=== PATIENT | female | born 1995 | race Caucasian/White ===

== ENCOUNTER 2017-06-10 11:24 | Emergency (ER) | payer OTHER, SELFPAY | END 2017-06-10 14:40 | disposition short-term general hospital (02) | PROVIDERS: Emergency Provider Emergency Medicine; Family Provider Physician Assistant; Visit Provider Emergency Medicine | DX: S20.219A Contusion of unspecified front wall of thorax, initial encounter (principal); S00.93XA Contusion of unspecified part of head, initial encounter; S14.109A Unspecified injury at unspecified level of cervical spinal cord, initial encounter; V47.5XXA Car driver injured in collision with fixed or stationary object in traffic accident, initial encounter; Y92.414 Local residential or business street as the place of occurrence of the external cause; F17.210 Nicotine dependence, cigarettes, uncomplicated | CPT/HCPCS: 70450; 71020; 72125; 81001; 81025; 99284 ==

== ENCOUNTER → 2017-11-11 13:32 | Outpatient (CLI) | payer OTHER, SELFPAY ==
[2017-11-11 15:31] LABS: Basophils # 0.1 K/mm3 (0-0.2); Basophils % 0.9 % (0.1-2.0); Eosinophils # 0.2 K/mm3 (0.0-0.4); Eosinophils % 2.4 % (0.1-12.0); Hematocrit 46.6 % (37.0-47.0); Hemoglobin 14.6 g/dL (12.2-16.2); Lymphocytes # 2.8 K/mm3 (0.7-4.5); Lymphocytes % 30.2 K/mm3 (10-50); Mean Corpuscular HGB Conc 31.4 g/dL (31.8-35.4); Mean Corpuscular Hemoglobin 28.5 pg (27.0-31.2); Mean Corpuscular Volume 90.6 fl (81-99); Mean Platelet Volume 7.9 fl (7.4-10.4); Monocytes # 0.3 K/mm3 (0.1-1.0); Monocytes % 3.7 % (1.7-9.3); Neutrophils # 5.7 K/mm3 (1.8-7.8); Neutrophils % 62.8 % (37.0-80.0); Platelet Count 330 K/mm3 (142-424); Red Blood Count 5.14 M/mm3 (4.20-5.40); Red Cell Distribution Width 12.8 % (11.5-17.5); White Blood Count 9.1 K/mm3 (4.8-10.8)
[2017-11-11 15:38] LABS: Hemoglobin A1C 5.5 % (0.0-7.0)
[2017-11-11 18:08] LABS: HCG Qualitative, Serum Negative (Negative)
[2017-11-11 18:59] LABS: Alanine Aminotransferase 23 U/L (12-78); Albumin Level 4.1 gm/dL (3.4-5.0); Albumin/Globulin Ratio 1.2 (1.1-1.8); Alkaline Phosphatase 60 U/L (46-116); Aspartate Amino Transferase 14 U/L (15-37); Bilirubin,Total 0.5 mg/dL (0.2-1.0); Blood Urea Nitrogen 9 mg/dL (7-18); Calcium 9.4 mg/dL (8.5-10.1); Carbon Dioxide 26 mmol/L (21.0-32.0); Cholesterol 144 mg/dL (140-200); Creatinine,Serum 0.66 mg/dL (0.55-1.02); Estimated Glomerular Filt Rate 112 ml/min (>60); GFR (African American) 136 ML/MIN (>60); Globulin 3.3 gm/dl (1.3-3.2); Glucose 86 mg/dL (74-106); T4 (Thyroxine) 9.9 ug/dl (4.7-13.3); Thyroid Stimulating Hormone 1.25 uIU/ml (0.358-3.740); Total Protein,Serum 7.4 gm/dL (6.4-8.2); Triglycerides 71 mg/dL (30-200); VLDL Cholesterol 14 mg/dL (0-40)
[2017-11-11 19:31] LABS: Anion Gap 13.2 mEq/L (5-15); Chloride 104 mmol/L (98-107); Chol/HDL Ratio 3.9 (1-3.5); HDL Cholesterol 37 mg/dL (29-89); LDL Cholesterol 93 mg/dL (0-130); Potassium 4.2 mmoL/L (3.5-5.1); Sodium 139 mmol/L (136-145)
[2017-11-13 20:19] LABS: Vitamin B12 294 pg/mL (232-1245)
[2017-11-15 15:55] LABS: Vitamin D 25 Hydroxy 31.4 ng/mL (30.0-100.0)
== END ==
PROVIDERS: Visit Provider Nurse Practitioner Family
DX: R53.83 Other fatigue (principal); E03.9 Hypothyroidism, unspecified; R73.09 Other abnormal glucose
CPT/HCPCS: 36415; 80053; 80061; 82607; 82652; 83036; 84436; 84443; 84703; 85025; 87086; 87088; 87186

== ENCOUNTER → 2018-04-11 16:33 | Outpatient (CLI) | payer OTHER, SELFPAY ==
[2018-04-11 17:13] LABS: Basophils # 0.1 K/mm3 (0-0.2); Basophils % 0.4 % (0.1-2.0); Eosinophils # 0.2 K/mm3 (0.0-0.4); Eosinophils % 1.9 % (0.1-12.0); Hematocrit 41.5 % (37.0-47.0); Hemoglobin 13.7 g/dL (12.2-16.2); Lymphocytes # 2.4 K/mm3 (0.7-4.5); Lymphocytes % 22.5 K/mm3 (10-50); Mean Corpuscular HGB Conc 32.9 g/dL (31.8-35.4); Mean Corpuscular Hemoglobin 29.9 pg (27.0-31.2); Mean Platelet Volume 6.8 fl (7.4-10.4); Monocytes # 0.4 K/mm3 (0.1-1.0); Monocytes % 3.6 % (1.7-9.3); Neutrophils # 7.5 K/mm3 (1.8-7.8); Neutrophils % 71.6 % (37.0-80.0); Platelet Count 358 K/mm3 (142-424); Red Blood Count 4.56 M/mm3 (4.20-5.40); Red Cell Distribution Width 12.7 % (11.5-17.5); White Blood Count 10.5 K/mm3 (4.8-10.8)
[2018-04-14 06:42] LABS: HIV Screen 4th Generation wRfx Non Reactive (Non Reactive); Rapid Plasma Reagin Ab Titer Non Reactive (NonRea<1:1); Rubella Antibodies, IgG 3.72 index (Immune >0.99)
[2018-04-14 06:43] LABS: Hepatitis B Surface Antigen Negative (Negative); Hepatitis C Antibody <0.1 s/co ratio (0.0-0.9)
== END ==
PROVIDERS: Family Provider Physician Assistant; PCP Physician Assistant; Visit Provider Nurse Practitioner Obstetrics & Gynecology
DX: Z34.90 Encounter for supervision of normal pregnancy, unspecified, unspecified trimester (principal); Z3A.08 8 weeks gestation of pregnancy
CPT/HCPCS: 36415; 85025; 86592; 86703; 86762; 86850; 87340; 87380; G0432

== ENCOUNTER → 2018-04-20 14:13 | Outpatient (CLI) | payer OTHER, SELFPAY ==
--- NOTE | 2018-04-20 14:15 | US_ITS ---
US OB transvaginal HISTORY: ITS.REASON: US OB Dates ORDERING PHYSICIAN: Fidel Tolbert MD PATIENT AGE: 22 years COMPARISON: None FINDINGS: An intrauterine gestational sac is present with a pole with a crown-rump length of 1.73cm correlating to gestational age of 8 weeks 2 days. heart tones are present with an FHR of 157 bpm's. Yolk sac is noted. Adnexa: Unremarkable. IMPRESSION: Live intrauterine gestation at 8 weeks 2 days as described above. Estimated due date by Ultrasound is 11/28/2018
== END ==
PROVIDERS: PCP Physician Assistant; Visit Provider Nurse Practitioner Obstetrics & Gynecology
DX: O26.841 Uterine size-date discrepancy, first trimester (principal)
CPT/HCPCS: 76817

== ENCOUNTER 2018-07-24 02:47 | Outpatient (CLI) | payer OTHER, SELFPAY ==
[2018-07-24 02:59] VITALS: BMI 25.2
[2018-07-24 03:05] LABS: Microscopic, Urine URINE MICROSCOPIC (MICROSCOPIC)
[2018-07-24 03:07] LABS: Appearance,Urine SL CLOUDY (Clear); Bilirubin,Urine Negative (Negative); Blood, Urine Negative (Negative); Color,Urine YELLOW (Yellow); Glucose,Urine (UA) Negative (Negative); Ketones,Urine Negative (Negative); Leukocyte Esterase,Urine Negative (Negative); Nitrate,Urine Negative (Negative); PH,Urine 6.5 (5.0-8.5); Protein,Urine Negative (Negative); Urobilinogen,Urine 0.2 EU/dl (0.2)
[2018-07-24 03:14] LABS: Amorphous Sediment,Urine 2+ /lpf; Mucus,Urine Trace /lpf
[2018-07-24 03:46] VITALS: BP 119/70; PULSE 90; RESP 18; TEMP 37.1; O2SAT 99; BMI 25.2
== END 2018-07-24 04:10 | disposition home or self-care (01) ==
LOC: OBOUT 02:50 → OB 02:51
PROVIDERS: Visit Provider Nurse Practitioner Obstetrics & Gynecology
DX: O99.89 Other specified diseases and conditions complicating pregnancy, childbirth and the puerperium (principal); Z3A.22 22 weeks gestation of pregnancy
CPT/HCPCS: 59025; 81001

== ENCOUNTER 2018-08-13 23:09 | Outpatient (CLI) | payer SELFPAY ==
[2018-08-13 23:49] VITALS: BMI 25.5
[2018-08-13 23:53] VITALS: BMI 25.5
[2018-08-13 23:56] VITALS: BP 119/65; PULSE 85; RESP 18; TEMP 36.7; O2SAT 96
[2018-08-13 23:58] LABS: Microscopic, Urine URINE MICROSCOPIC (MICROSCOPIC)
[2018-08-13 23:59] LABS: Appearance,Urine CLOUDY (Clear); Blood, Urine Negative (Negative); Color,Urine YELLOW (Yellow); Glucose,Urine (UA) Negative (Negative); Ketones,Urine TRACE (Negative); Leukocyte Esterase,Urine 1+ (Negative); Nitrate,Urine Negative (Negative); PH,Urine 6.5 (5.0-8.5); Protein,Urine Negative (Negative); Specific Gravity, Urine 1.025 (1.005-1.030)
[2018-08-14 00:03] LABS: Bilirubin,Urine Negative (Negative)
[2018-08-14 00:04] LABS: Amorphous Sediment,Urine 4+ /lpf; Squamous Epithelial Cell,Urine 20-50 #/hpf (0-5)
[2018-08-14 00:08] LABS: Amphetamine/Metha Screen,Urine Negative ng/mL (<1000); Barbiturates Screen,Urine Negative ng/mL (<200); Benzodiazepines Screen,Urine Negative ng/mL (<200); Cannabinoid Screen,Urine Negative ng/mL (<50); Cocaine Screen,Urine Negative ng/mL (<300); Methadone Screen,Urine Negative ng/mL (<300); Opiate Screen,Urine Negative ng/mL (<300); Phencyclidine Screen,Urine Negative ng/mL (<25)
== END 2018-08-14 00:40 | disposition home or self-care (01) ==
LOC: OBOUT 23:12 → OB 23:13
PROVIDERS: Visit Provider Obstetrics & Gynecology
DX: O36.8120 Decreased fetal movements, second trimester, not applicable or unspecified (principal); Z3A.25 25 weeks gestation of pregnancy
CPT/HCPCS: 59025; 80305; 81001; 87086

== ENCOUNTER → 2021-09-18 12:09 | Outpatient (CLI) | payer SELFPAY ==
--- NOTE | 2021-09-18 12:17 | US_ITS ---
FINAL REPORT CLINICAL HISTORY: ABD PAIN; nausea/ vomiting for 3 weeks FINDINGS: Sonographic images of the right upper quadrant were obtained. The pancreas is partially obscured.The liver has an unremarkable appearance. There are multiple gallstones in the gallbladder. There is no evidence of biliary ductal dilatation.The common duct measures 4mm. Limited images of the right kidney are unremarkable. IMPRESSION: Cholelithiasis. Reviewed, Interpreted and Dictated by Alessio Bruce III, MD Transcribed by Jace Hitchcock Authenticated by Alessio Bruce III, MD on 09/18/2021 01:39:42 PM [facility]
== END ==
PROVIDERS: PCP Nurse Practitioner; Visit Provider Nurse Practitioner
DX: R10.10 Upper abdominal pain, unspecified (principal)
CPT/HCPCS: 76705

== ENCOUNTER → 2021-09-29 10:47 | Outpatient (CLI) | payer MEDICAID, SELFPAY ==
[2021-09-29 10:51] LABS: Adenovirus F 40/41, stool Not Detected (NotDetected); Campylobacter Not Detected (NotDetected); Clostridium Difficile A/B, PCR Not Detected (NotDetected); Cryptosporidium Not Detected (NotDetected); Cyclospora Cayetanesis Not Detected (NotDetected); Entamoeba histolytica Not Detected (NotDetected); Enteroaggregative E coli Not Detected (NotDetected); Enteropathogenic E coli Not Detected (NotDetected); Enterotoxigenic E coli Not Detected (NotDetected); Norovirus Not Detected (NotDetected); Plesimonas Shigalloides, PCR Not Detected (NotDetected); Rotavirus A Not Detected (NotDetected); Salmonella, PCR Not Detected (NotDetected); Sapovirus Not Detected (NotDetected); Shiga-like toxin E coli Not Detected (NotDetected); Shigella Enterovasive E coli Not Detected (NotDetected); Vibrio Cholerae Not Detected (NotDetected); Vibrio, PCR Not Detected (NotDetected); Yersinia Entercolitica, PCR Not Detected (NotDetected)
[2021-09-29 17:34] LABS: Astrovirus Detected (NotDetected)
[2021-09-29 17:39] LABS: Giardia lamblia Detected (NotDetected)
== END ==
PROVIDERS: Visit Provider Surgery
DX: R19.7 Diarrhea, unspecified (principal); A08.32 Astrovirus enteritis; A07.1 Giardiasis [lambliasis]
CPT/HCPCS: 87507

== ENCOUNTER → 2021-10-14 08:27 | Outpatient (CLI) | payer MEDICAID, SELFPAY ==
--- NOTE | 2021-10-14 08:27 | CT_ITS ---
FINAL REPORT TECHNIQUE: After the administration of oral and intravenous contrast, axial images were obtained through the abdomen and pelvis by computed tomography. The study was performed with techniques to keep radiation dose as low as reasonably achievable, (ALARA). Individual dose reduction techniques using automated exposure control or adjustment of mA and/or kV according to the patient's size were employed. CLINICAL HISTORY: RUQ pain, nausea, diarrhea COMPARISON: March 11, 2016 FINDINGS: Abdomen: The lung bases are clear. The liver parenchyma is homogeneous. The gallbladder is present. There are some stones or sludge within the lumen of the gallbladder. The spleen, pancreas, adrenals and kidneys appear unremarkable. The aorta is normal in caliber. There is no free fluid or adenopathy. There are multiple enlarged mesenteric lymph nodes present. Individual lymph nodes measure up to 2.0 cm in greatest diameter. Lymph nodes are seen throughout the root of the mesentery. Pelvis: The appendix measures at the upper limits in size but it is air-filled and there is no surrounding inflammation. There is a cyst or follicle in the left ovary measuring 1.8 cm . The urinary bladder is unremarkable. There is no free fluid or adenopathy. IMPRESSION: New extensive mesenteric adenopathy favoring inflammatory but may be related to mesenteric adenitis. Other etiology such as lymphoma could be a consideration. Recommend follow-up CT scan to assess for interval change. Reviewed, Interpreted and Dictated by Liam Black MD Transcribed by Evelyn Chatterjee Authenticated by Liam Black MD on 10/14/2021 11:36:59 AM [facility]
== END ==
PROVIDERS: PCP Nurse Practitioner; Visit Provider Surgery
DX: R10.11 Right upper quadrant pain (principal); R11.0 Nausea; R19.7 Diarrhea, unspecified
CPT/HCPCS: 74177; Q9967

== ENCOUNTER 2021-10-15 23:00 | Emergency (ER) | payer MEDICAID, SELFPAY ==
[2021-10-15 23:23] VITALS: BP 147/114; PULSE 85; RESP 18; TEMP 36.8; O2SAT 99; BMI 27.8
[2021-10-15 23:25] VITALS: BMI 29.5
[2021-10-15 23:39] LABS: Basophils # 0.4 K/mm3 (0-0.2); Basophils % 3.6 % (0.1-2.0); Eosinophils # 0.3 K/mm3 (0.0-0.4); Eosinophils % 3.1 % (0.1-12.0); Hematocrit 44.2 % (37.0-47.0); Hemoglobin 14.7 g/dL (12.2-16.2); Lymphocytes # 4.2 K/mm3 (0.7-4.5); Mean Corpuscular HGB Conc 33.2 g/dL (31.8-35.4); Mean Corpuscular Hemoglobin 29.5 pg (27.0-31.2); Mean Corpuscular Volume 88.9 fl (81-99); Monocytes # 0.5 K/mm3 (0.1-1.0); Monocytes % 4.1 % (1.7-9.3); Neutrophils # 5.5 K/mm3 (1.8-7.8); Neutrophils % 50.1 % (37.0-80.0); Platelet Count 323 K/mm3 (142-424); Red Blood Count 4.97 M/mm3 (4.20-5.40); White Blood Count 10.9 K/mm3 (4.8-10.8)
[2021-10-15 23:48] LABS: Microscopic, Urine URINE MICROSCOPIC (MICROSCOPIC)
[2021-10-15 23:49] LABS: Alanine Aminotransferase 35 U/L (12-78); Albumin Level 4.6 g/dl (3.5-5.0); Albumin/Globulin Ratio 1.6 (1.1-1.8); Alkaline Phosphatase 95 U/L (38-126); Anion Gap 12.6 mEq/L (5-15); Aspartate Amino Transferase 32 U/L (14-36); Bilirubin,Total 0.5 mg/dl (0.2-1.3); Blood Urea Nitrogen 7 mg/dl (7-17); Calcium 9.9 mg/dl (8.4-10.2); Carbon Dioxide 25 mmol/L (22.0-30.0); Chloride 106 mmol/L (98-107); Creatinine Clearance Estimated 305 mL/min (50-200); Estimated Glomerular Filt Rate 193 ml/min (>60); GFR (African American) 233 ML/MIN (>60); Globulin 2.9 g/dL (1.3-3.2); Glucose 109 mg/dl (74-100); Potassium 3.6 mmoL/L (3.5-5.1); Sodium 140 mmol/L (136-145); Total Protein,Serum 7.5 g/dl (6.3-8.2)
[2021-10-15 23:49] LABS: Appearance,Urine CLEAR (Clear); Bilirubin,Urine Negative (Negative); Blood, Urine Negative (Negative); Color,Urine YELLOW (Yellow); Glucose,Urine (UA) Negative (Negative); Ketones,Urine Negative (Negative); Leukocyte Esterase,Urine Negative (Negative); Nitrate,Urine Negative (Negative); Protein,Urine Negative (Negative); Urobilinogen,Urine 0.2 EU/dl (0.2)
[2021-10-15 23:54] LABS: C-Reactive Protein 4.6 mg/L (0-4)
[2021-10-16 00:08] LABS: Procalcitonin 0.037 ng/mL (0.0-2.0)
--- NOTE | 2021-10-16 00:11 | HMH.EDNVD ---
ED Disposition Clinical Impression: Cholelithiasis Qualifiers: Cholelithiasis location: gallbladder Cholecystitis presence: without cholecystitis Biliary obstruction: without biliary obstruction Qualified Code(s): K80.20 - Calculus of gallbladder without cholecystitis without obstruction Disposition: Home, Self-Care Condition on Discharge: Good Instructions: DI for Gallstones Additional Instructions: call dr barragan for follow up Referrals: Kelton Jha [Primary Care Provider] - Alessio Barragan MD [Staff Physician] - - Critical Care Critical Care Time: No Attestation: On 10/15/21, the high probability of a clinically significant, sudden or life threatening deterioration of the following system(s) required my full and direct attention, intervention and personal management. The time I documented below is in addition to time spent performing reported procedures but includes the following listed in this critical care notation. Medical Decision Making - Medical Records Medical records reviewed: Yes: I reviewed the patient's medical records. - [place] Inquiry Pt receiving controlled substance: No Vital Signs: 10/15/21 23:23 Temperature 98.2 F Temperature Source Oral Pulse Rate [Apical] 85 Respiratory Rate 18 Blood Pressure [Right Arm] 147/114 H Blood Pressure Mean [Right Arm] 125 Blood Pressure Source [Right Arm] Automatic Cuff Blood Pressure Position [Right Arm] Sitting 02 Sat by Pulse Oximetry 99 Oxygen Delivery Method Room Air - Lab Data Lab results reviewed: Yes: I reviewed the patient's lab results. Lab Results 10/15/21 23:15: WBC 10.9 H, RBC 4.97, Hgb 14.7, Hct 44.2, MCV 88.9, MCH 29.5, MCHC 33.2, RDW 13.0, Plt Count 323, MPV 8.0, Neut % (Auto) 50.1, Lymph % (Auto) 39.0, Slope % (Auto) 4.1, Eos % (Auto) 3.1, Baso % (Auto) 3.6 H, Neut # (Auto) 5.5, Lymph # (Auto) 4.2, Slope # (Auto) 0.5, Eos # (Auto) 0.3, Baso # (Auto) 0.4 H 10/15/21 23:15: Sodium 140, Potassium 3.6, Chloride 106, Carbon Dioxide 25, Anion Gap 12.6, BUN 7, Creatinine 0.40 L, Estimated Creat Clear 305 H, Estimated GFR 193, Est GFR ( Amer) 233, Glucose 109 H, Calcium 9.9, Total Bilirubin 0.5, AST 32, ALT 35, Alkaline Phosphatase 95, C-Reactive Protein 4.6 H, Total Protein 7.5, Albumin 4.6, Globulin 2.9, Albumin/Globulin Ratio 1.6, Procalcitonin 0.037 10/15/21 23:43: Urine Color Yellow, Urine Appearance Clear, Urine pH 7.0, Ur Specific [place] 1.020, Urine Protein Negative, Urine Glucose (UA) Negative, Urine Ketones Negative, Urine Blood Negative, Urine Nitrate Negative, Urine Bilirubin Negative, Urine Urobilinogen 0.2, Ur Leukocyte Esterase Negative, Urine RBC None, Urine WBC Occasional, Ur Squamous Epith Cells Occasional, Urine Bacteria None 10/16/21 00:00: Amylase 62, Lipase 81 Result diagrams: 10/15/21 23:15 10/15/21 23:15 Orders (Tests/Meds): ED MEDICATIONS Generic Name Dose Route Start Last Admin Trade Name Freq PRN Reason Stop Dose Admin Lactated Ringer's 1,000 mls @ 999 mls/hr 10/15/21 23:30 10/15/21 23:39 Lactated Ringer's 1000 Ml Bag IV 10/16/21 00:30 999 mls/hr .Q1H1M ROLDAN Administration Sodium Chloride 8 ml 10/15/21 23:25 Sodium Chloride 0.9% 10ml Vial IV 11/14/21 23:24 NEEDED PRN dilute pepcid Discontinued Medications Generic Name Dose Route Start Last Admin Trade Name Freq PRN Reason Stop Dose Admin Acetaminophen/Codeine Phosphate 1 shadi 10/16/21 00:32 10/16/21 00:36 Acetaminophen 300mg W/Codeine 30mg Take Home Pack (6) PO 10/16/21 00:33 1 shadi ONCE ONE Administration Famotidine 20 mg 10/15/21 23:25 10/15/21 23:40 Famotidine 20mg/2ml Vial IV 10/15/21 23:26 20 mg ONCE ONE Administration Ketorolac Tromethamine 30 mg 10/15/21 23:25 10/15/21 23:39 Ketorolac 30mg/Ml Vial IV 10/15/21 23:26 30 mg ONCE ONE Administration Metoclopramide HCl 10 mg 10/15/21 23:25 10/15/21 23:40 Metoclopramide Hcl 10mg/2ml Vial IVP 10/15/21 23:26 10 mg ONCE ONE
[2021-10-16 00:17] LABS: Squamous Epithelial Cell,Urine Occasional #/hpf (0-5); WBC,Urine Occasional #/hpf (0-3)
[2021-10-16 00:20] LABS: Amylase 62 U/L (30-110); Lipase 81 U/L (23-300)
--- NOTE | 2021-10-16 00:30 | PC.NURSE ---
Dr. Trivedi on phone with Dr. Barragan
[2021-10-16 00:58] LABS: Erythrocyte Sedimentation Rate 10 mm/hr (0-20)
[2021-10-16 01:04] VITALS: BP 140/90; PULSE 80; RESP 18; TEMP 36.8; O2SAT 99
== END 2021-10-16 01:09 | disposition home or self-care (01) ==
PROVIDERS: Emergency Provider Emergency Medicine; PCP Pediatrics
DX: K80.20 Calculus of gallbladder without cholecystitis without obstruction (principal); M54.9 Dorsalgia, unspecified; I11.0 Hypertensive heart disease with heart failure; E03.9 Hypothyroidism, unspecified; J45.909 Unspecified asthma, uncomplicated; F17.210 Nicotine dependence, cigarettes, uncomplicated; Z79.899 Other long term (current) drug therapy; Z88.6 Allergy status to analgesic agent; Z82.49 Family history of ischemic heart disease and other diseases of the circulatory system; Z83.438 Family history of other disorder of lipoprotein metabolism and other lipidemia; Z82.5 Family history of asthma and other chronic lower respiratory diseases; Z83.3 Family history of diabetes mellitus
CPT/HCPCS: 80053; 81001; 82150; 83690; 84145; 85025; 85651; 86140; 96361; 96374; 96375; 99285

== ENCOUNTER → 2021-11-23 09:11 | Outpatient (CLI) | payer MEDICAID, SELFPAY ==
--- NOTE | 2021-11-23 09:12 | CT_ITS ---
FINAL REPORT TECHNIQUE: Then section axial CT images of the chest were obtained with contrast. Three-D reformatted images were also obtained.This study was performed with techniques to keep radiation doses as low as reasonably achievable (ALARA). Individualized dose reduction techniques using automated exposure control or adjustment of mA and/or kV according to the patient''s size were employed. CLINICAL HISTORY: Chest pain, tachycardia, abnormal EKG FINDINGS: There is anterior mediastinal soft tissue of uncertain etiology which could represent residual thymus. There is no evidence of pulmonary embolism. There is no evidence of thoracic aortic aneurysm or dissection. There is no evidence of mediastinal or hilar mass or adenopathy. There is no evidence of pulmonary mass or suspicious nodule. There is mild bibasilar atelectasis or scarring. No localized inflammatory process is seen within the lungs. Limited images of the upper abdomen are unremarkable. IMPRESSION: No evidence of pulmonary embolism. No mass or localized inflammatory process. Reviewed, Interpreted and Dictated by Alessio Bruce III, MD Transcribed by Ramona Ornelas Authenticated and [facility]
--- NOTE | 2021-11-23 09:47 | CA_ITS ---
APPROVED REPORT EXAM: Comprehensive 2D, Doppler, and color-flow Echocardiogram Carbide Die Maker: Ileana Finn, CUAUHT[place], RVS Ht: 5 ft 9 in Wt: 180lbs BSA: 1.98 BP: 119/63 mmHg Indications: CP, SVT, ABN EKG, Dizziness, Smoker 2D Dimensions Aortic Root 2.53 cm LA Volume 39.30 mL Left Atrium 2.90 cm LA Volume Index 19.80 mL/m2 (M/F) 16-34 LVOT 1.98 cm (M/F) 1.5-2.5 M-Mode Dimensions RVDd 1.74 cm (0.9-2.6) LA Diam 3.70 cm (1.9-4.0) LVDd 5.29 cm (3.5-5.7) Ao Diam 3.30 cm (2.0-3.7) LVDs 3.38 cm (3.5-5.7) IVSd 0.67 cm (0.6-1.1) PWd 0.74 cm (0.6-1.1) EF (Teich) 65.30% EPSs 0.61 cm FS 36.10% EDV (Teich) 134.80 mL TAPSE 2.06 (<1.7) ESV (Teich) 46.80 mL LV Diastology E Decel Time 197.00 (160-240 msec) E/A Ratio 1.95 MED E' 11.80 (< 7 cm/sec) MED A' 15.20 cm/s E'/MED E' Ratio 7.35 (>14) LAT E' 18.00 (<10 cm/sec) LAT A' 8.40 cm/s E/LAT E' Ratio 4.82 (>14) Aortic Valve LVOT Max 107.00 (70-110 cm/s) LVOT VTI 20.69 cm AoV Peak Tunde. 166.00 (50-130 cm/s) AO Peak GR. 11.10 mmHg AO Mean GR. 5.50 (<5 mmHg) AO VTI 30.31 (18-25 cm) VICTOR MANUEL (VTI) 2.10 (2.5-4.5 cm2) Mitral Valve MV A Velocity 44.00 (40-130 cm/s) E/A Ratio 1.95 MV Decel. Time 197.00 (160-240 ms) Pulmonary Valve PV Peak Velocity 118.00 (50-150 cm/s) OR End VMAX 155.00 cm/s Tricuspid Valve TR P. Velocity 225.00 cm/s RAP Estimate 10.00 mmHg RVSP 30.30 mmHg Left Ventricle Left atrium is normal size, left ventricle is normal size, there is no concentric left ventricular hypertrophy, estimated ejection fraction 55% with no regional wall motion abnormality, diastolic parameters are within normal range. Right Ventricle Right atrium and right ventricle are normal size and contractility. Aortic Valve Aortic valve is grossly normal. There is no aortic stenosis or aortic insufficiency. Mitral Valve Mitral valve grossly normal, there is trace mitral regurgitation. Tricuspid Valve Tricuspid valve grossly normal, there is trace tricuspid regurgitation, calculated right ventricular systolic pressure 30 mmHg. Pulmonic Valve Pulmonic valve is poorly visualized. Great Vessels Aortic root is normal size. Inferior vena cava is normal size with normal inspiratory collapse. Pericardium No significant pericardial effusion noted. Conclusion 1. Normal left ventricular size, preserved left ventricular systolic function, estimated ejection fraction 55% with no regional wall motion abnormality, diastolic parameters are within normal range. 2. Trace mitral and tricuspid regurgitation, calculated right ventricular systolic pressure 30 mmHg. 3. No significant pericardial effusion noted. 4. Inferior vena cava normal size with normal inspiratory collapse. Electronically signed by : Jose Collins MD 11/23/2021 19:24:01
== END ==
PROVIDERS: PCP Pediatrics; Visit Provider Internal Medicine Cardiovascular Disease
DX: R06.00 Dyspnea, unspecified (principal); R07.9 Chest pain, unspecified; R00.0 Tachycardia, unspecified; R42 Dizziness and giddiness; R94.31 Abnormal electrocardiogram [ECG] [EKG]
CPT/HCPCS: 71275; 93306; Q9967

== ENCOUNTER → 2022-08-19 12:09 | Outpatient (CLI) | payer MEDICAID, SELFPAY ==
[2022-08-19 13:15] LABS: Basophils # 0.1 K/mm3 (0-0.2); Basophils % 0.9 % (0.1-2.0); Eosinophils # 0.2 K/mm3 (0.0-0.4); Eosinophils % 2.7 % (0.1-12.0); Hematocrit 38.4 % (37.0-47.0); Hemoglobin 12.5 g/dL (12.2-16.2); Lymphocytes # 2.4 K/mm3 (0.7-4.5); Lymphocytes % 30.4 % (10-50); Mean Corpuscular HGB Conc 32.6 g/dL (31.8-35.4); Mean Corpuscular Hemoglobin 29.6 pg (27.0-31.2); Mean Corpuscular Volume 90.6 fl (81-99); Mean Platelet Volume 8.1 fl (7.4-10.4); Monocytes # 0.3 K/mm3 (0.1-1.0); Neutrophils # 4.9 K/mm3 (1.8-7.8); Neutrophils % 62.1 % (37.0-80.0); Platelet Count 317 K/mm3 (142-424); Red Blood Count 4.24 M/mm3 (4.20-5.40); White Blood Count 7.9 K/mm3 (4.8-10.8)
[2022-08-19 13:34] LABS: Chloride 106 mmol/L (98-107)
[2022-08-19 13:35] LABS: Potassium 3.8 mmoL/L (3.5-5.1); Sodium 138 mmol/L (136-145)
[2022-08-19 13:37] LABS: Alanine Aminotransferase 35 U/L (12-78); Alkaline Phosphatase 76 U/L (38-126); Anion Gap 10.8 mEq/L (5-15); Aspartate Amino Transferase 29 U/L (14-36); Bilirubin,Direct 0.1 mg/dl (0.0-0.4); Bilirubin,Indirect 0.3 mg/dL (0.0-0.9); Bilirubin,Total 0.4 mg/dl (0.2-1.3); Bilirubin,Unconjugated 0.3 mg/dL (0.0-1.1); Blood Urea Nitrogen 7 mg/dl (7-17); Calcium 8.6 mg/dl (8.4-10.2); Carbon Dioxide 25 mmol/L (22.0-30.0); Cholesterol 122 mg/dl (140-200); Estimated Glomerular Filt Rate 148 ml/min (>60); GFR (African American) 179 ML/MIN (>60); Glucose 94 mg/dl (74-100); Magnesium 1.9 mg/dl (1.6-2.3); Triglycerides 126 mg/dl (30-150); VLDL Cholesterol 25 mg/dL (0-40)
[2022-08-19 13:38] LABS: Albumin Level 4.1 g/dl (3.5-5.0); Chol/HDL Ratio 3.2 (1-3.5); HDL Cholesterol 38 mg/dl (40-60); Total Protein,Serum 6.8 g/dl (6.3-8.2)
[2022-08-19 13:50] LABS: Direct LDL Cholesterol 72.31 mg/dL (100-129)
[2022-08-19 13:54] LABS: Free T4 (Free Thyroxine) 2.93 ng/dl (0.78-2.19)
[2022-08-19 14:08] LABS: Thyroid Stimulating Hormone < 0.02 uIU/mL (0.465-4.68)
== END ==
PROVIDERS: PCP Family Medicine; Visit Provider Nurse Practitioner
DX: R06.00 Dyspnea, unspecified (principal); R07.9 Chest pain, unspecified; R00.2 Palpitations; R00.0 Tachycardia, unspecified; M79.604 Pain in right leg; M79.605 Pain in left leg; R01.1 Cardiac murmur, unspecified; R20.0 Anesthesia of skin; R94.31 Abnormal electrocardiogram [ECG] [EKG]
CPT/HCPCS: 36415; 80048; 80061; 80076; 83735; 84439; 84443; 85025; 93225

== ENCOUNTER → 2022-08-21 13:58 | Outpatient (CLI) | payer MEDICAID, SELFPAY | PROVIDERS: PCP Family Medicine; Visit Provider Nurse Practitioner | DX: R01.1 Cardiac murmur, unspecified (principal) | CPT/HCPCS: 93270 ==

== ENCOUNTER 2023-05-14 13:05 | Emergency (ER) | payer MEDICAID, SELFPAY ==
[2023-05-14 13:07] VITALS: BP 122/50; PULSE 110; RESP 18; TEMP 36.8; O2SAT 100; BMI 19.8
--- NOTE | 2023-05-14 13:29 | XR_ITS ---
PROCEDURE INFORMATION: Exam: XR Chest Exam date and time: 05/14/2023 1:54 PM Age: 27 years old Clinical indication: Cough; Additional info: Chronic cough TECHNIQUE: Imaging protocol: Radiologic exam of the chest. Views: 1 view. COMPARISON: CT ANGIO CHEST PE PROTOCOL 11/23/2021 9:37 AM FINDINGS: Lungs: Unremarkable. No consolidation. Pleural spaces: Unremarkable. No pleural effusion. No pneumothorax. Heart/Mediastinum: Mild cardiomegaly Bones/joints: Unremarkable. IMPRESSION: No acute process
--- NOTE | 2023-05-14 14:02 | HMH.EDGENADL ---
Discharge Plan Disposition Patient Disposition: Home, Self-Care Prescriptions Prescriptions: No Action omeprazole 40 mg capsule,delayed release(DR/EC) 40 mg PO DAILY Qty: 90 3RF bisoprolol fumarate 10 mg tablet 10 mg PO DAILY Qty: 90 3RF Referrals Follow up/Referrals: Heri Cruz MD [Primary Care Provider] - See instructions Neymar Degroot DO [Staff Physician] - See instructions (Symptomatic hyperthyroidism) Activity Restrictions/Add. Instructions Additional Instructions/Restrictions: Follow-up with Dr. Degroot, be sure to call his office for an appointment on Tuesday. You have hyperthyroidism and will require treatment for this. Call your family doctor to establish care for this visit to the emergency department and schedule follow-up within 48 hours to ensure improvement. If you have any worsening of your condition or any other concerning signs or symptoms, return to the emergency department or your primary care doctor for further evaluation. Clinical Impressions Clinical Impression: Hyperthyroidism Discharge ED Provider: Pierre Avendaño General Adult HPI General Chief complaint: Weakness Stated complaint: presistant cough, coughing up blood, fever exhusti Time Seen by Provider: 05/14/23 13:12 Mode of Arrival: Ambulatory Source of Information: Patient Limitations: No Limitations Description of Symptoms (Recalled from ER Triage Doc. by RN): 27 yo F presents to ED with multiple complaints. pt reports she had bronchitis one month ago and since then she has had symptoms including, fever, fatigue, weight loss, coughing up blood, bilateral feel swelling. 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 History of Present Illness HPI narrative: 27-year-old female history of asthma, concern for COPD because of my smoking history, , anxiety, hyperthyroidism not under control, tachycardia on metoprolol presenting with medical evaluation. Patient states mother's sent her here to be evaluated for everything. Patient states she has been coughing for about a month, has a history of bronchitis about a month ago and has been coughing since. Nonproductive cough at this point. Patient states that she has intermittent fevers, last 1 was 3 days ago and was 102 degrees temporally. Also states she has had weight loss, palpitations. She also states that she vomits every morning, she is unsure why. Nonbloody, nonbilious vomit, as well as diarrhea almost daily. She states she last had menstrual period 20 April and it was normal for her. Related Data Previous Rx's Medication Instructions Recorded omeprazole 40 mg capsule,delayed 40 mg PO DAILY #90 caps 11/13/21 release bisoprolol fumarate 10 mg tablet 10 mg PO DAILY #90 tabs 08/19/22 Allergies Allergy/AdvReac Type Severity Reaction Status Date / Time aspirin [ASPIRIN] Allergy Unknown Verified 08/19/22 11:43 [facility] Disclaimer: The information contained in this section may have been updated after the patient was seen, as this information can be updated by other users. Medical History (Updated 05/14/23 @ 14:45 by Pierre Avendaño MD) Abnormal electrocardiogram [ECG] [EKG] Bilateral leg pain Chest pain Dyspnea Hyperthyroidism Hypoglycemia Murmur Numbness of left hand Palpitations Tachycardia Surgical History H/O toe surgery History of History of dental surgery Family History Father Coronary artery disease Grandfather Thyroid disorder Diabetes Coronary artery disease Social History Smoking Status: Current every day smoker tobacco type: cigarettes packs per day: 1 alcohol intake: never substance use type: denies use current occupational status: employed Travel in the last 8 weeks: None household members: family housing: house ROS Obtained: Yes A
[2023-05-14 14:07] LABS: Alanine Aminotransferase 20 U/L (12-78); Albumin Level 3.4 g/dl (3.5-5.0); Albumin/Globulin Ratio 0.9 (1.1-1.8); Alkaline Phosphatase 159 U/L (38-126); Anion Gap 11.3 mEq/L (5-15); Aspartate Amino Transferase 25 U/L (14-36); Bilirubin,Total 0.7 mg/dl (0.2-1.3); Blood Urea Nitrogen 9 mg/dl (7-17); Calcium 8.7 mg/dl (8.4-10.2); Carbon Dioxide 26 mmol/L (22.0-30.0); Chloride 101 mmol/L (98-107); Creatinine Clearance Estimated 262 mL/min (50-200); Estimated Glomerular Filt Rate 267 ml/min (>60); GFR (African American) 323 ML/MIN (>60); Globulin 3.6 g/dL (1.3-3.2); Glucose 95 mg/dl (74-100); Lipase 13 U/L (23-300); Potassium 3.3 mmoL/L (3.5-5.1); Sodium 135 mmol/L (136-145)
[2023-05-14 14:19] LABS: Basophils % 0.2 % (0.1-2.0); Eosinophils # 0.2 K/mm3 (0.0-0.4); Eosinophils % 2.9 % (0.1-12.0); Hematocrit 29.7 % (37.0-47.0); Hemoglobin 9.9 g/dL (12.2-16.2); Lymphocytes # 1.5 K/mm3 (0.7-4.5); Lymphocytes % 22.5 % (10-50); Mean Corpuscular HGB Conc 33.2 g/dL (31.8-35.4); Mean Corpuscular Hemoglobin 28.2 pg (27.0-31.2); Mean Corpuscular Volume 85.1 fl (81-99); Mean Platelet Volume 8.5 fl (7.4-10.4); Monocytes # 0.4 K/mm3 (0.1-1.0); Monocytes % 6.1 % (1.7-9.3); Neutrophils # 4.6 K/mm3 (1.8-7.8); Neutrophils % 68.4 % (37.0-80.0); Platelet Count 358 K/mm3 (142-424); Red Cell Distribution Width 13.2 % (11.5-17.5); White Blood Count 6.7 K/mm3 (4.8-10.8)
[2023-05-14 14:20] VITALS: BP 110/39; PULSE 103; RESP 16; O2SAT 98
[2023-05-14 14:24] LABS: T4 (Thyroxine) 19.8 ug/dl (5.53-11.0)
[2023-05-14 14:27] LABS: HCG,Quantitative < 2 mIU/ml (0-5.42)
[2023-05-14 14:27] LABS: Microscopic, Urine URINE MICROSCOPIC (MICROSCOPIC)
[2023-05-14 14:31] LABS: Appearance,Urine CLEAR (Clear); Blood, Urine Negative (Negative); Color,Urine AMBER (Yellow); Glucose,Urine (UA) Negative (Negative); Ketones,Urine Negative (Negative); Leukocyte Esterase,Urine Negative (Negative); Nitrate,Urine Negative (Negative); Protein,Urine TRACE (Negative); Specific Gravity, Urine >= 1.030 (1.005-1.030)
[2023-05-14 14:35] LABS: Bilirubin,Urine 1+ (Negative)
[2023-05-14 14:38] LABS: Thyroid Stimulating Hormone < 0.02 uIU/mL (0.465-4.68)
[2023-05-14 14:43] LABS: Bacteria,Urine 1+ /lpf; WBC,Urine Occasional #/hpf (0-3)
[2023-05-14 14:59] VITALS: BP 130/80; PULSE 66; RESP 16; TEMP 36.7
== END 2023-05-14 15:01 | disposition home or self-care (01) ==
PROVIDERS: Emergency Provider Emergency Medicine; PCP Family Medicine
DX: E05.90 Thyrotoxicosis, unspecified without thyrotoxic crisis or storm (principal); E87.6 Hypokalemia; R63.4 Abnormal weight loss; R00.2 Palpitations; R05.9 Cough, unspecified; R50.9 Fever, unspecified; F17.210 Nicotine dependence, cigarettes, uncomplicated; J45.909 Unspecified asthma, uncomplicated; R00.0 Tachycardia, unspecified
CPT/HCPCS: 71045; 80053; 81001; 83690; 84436; 84443; 84702; 85025; 96360; 99284

== ENCOUNTER → 2023-06-01 10:33 | Outpatient (CLI) | payer MEDICAID, SELFPAY ==
[2023-06-01 18:28] LABS: Free T4 (Free Thyroxine) 3.72 ng/dl (0.78-2.19)
== END ==
PROVIDERS: PCP Internal Medicine; Visit Provider Internal Medicine
DX: E05.90 Thyrotoxicosis, unspecified without thyrotoxic crisis or storm (principal)
CPT/HCPCS: 84439; 84445

== ENCOUNTER 2023-06-17 08:26 | Outpatient (CLI) | payer MEDICAID, SELFPAY ==
[2023-06-17] VITALS (9 sets, daily range): BP systolic 96–114; BP diastolic 47–71; PULSE 68–90; RESP 17–18; TEMP 36.7; O2SAT 95–100; BMI 20.5
--- NOTE | 2023-06-17 08:26 | CT_ITS ---
APPROVED REPORT Ui Ux Developer: CLINICAL INDICATION Chest Pain TECHNIQUE Image Acquisition: A 128 slice MDCT scanner ([employer] View) was used for data acquisition. A noncontrast coronary calcium scan was performed. A CT attenuation threshold of 130 Hounsfield units (HU) was used for the detection of calcium in contiguous voxels of 1 sq mm in area to be counted as individual lesions. Bolus tracking in the ascending aorta with a threshold of 180 HU was performed. Immediately afterwards, ECG synchronized cardiac CT was then performed from the cardiac base to apex using retrospective gating with ECG tube current modulation. A total of 85 mL of Isovue 370 mg/mL contrast medium was administered at 5 mL/sec followed by a saline flush using a biphasic injection protocol. A tube voltage of 120 KVp was used. The patient received the following medications prior to the cardiac CT. 100 mg of oral metoprolol 30 mg of intravenous metoprolol The average heart rate at the time of acquisition was 67 bpm and regular. Image Reconstruction Transaxial images were reconstructed at 0.67 mm slide thickness. Data was reviewed interactively on an advanced workstation capable of 2 and 3-dimensional displays in all conventional reconstruction formats, including multiplanar reformations, maximum intensity projections, curved multiplanar reformations, and volume rendered reconstructions. When applicable, selected routine images describing the relevant coronary anatomy and pathology were saved and sent to PACS. Complications None Technical Quality Overall image quality was good. Coronary artery opacification was adequate. Total DLP (Dose-Length Product) is 1526.0 mGy-cm. The reported value represents the total of one or more individual components during the CT acquisition of this date and at this time, and as such, the same value may appear in more than one CT report depending on the interpreting/reporting physicians. COMPARISON None FINDINGS CT Coronary Calcium Scoring LMA (Left Main Artery) = 0 LAD (Left Anterior Descending) = 0 LCX (Left Coronary Circumflex) = 0 RCA (Right Coronary Artery) = 0 Total Calcium Score = 0 using the AJ-130 method. The interpretation of the calcium heart score is based on the following continuum*: 0 = no calcified plaque detected (risk of coronary artery disease is very low ??? less than 5%) 1-10 = calcium detected in extremely minimal levels (risk of coronary diseases is still low ??? less than 10%) 11-100 = mild levels of plaque detected with certainty (mild or minimal narrowing of heart arteries is likely) 101-400 = definite,at least moderate levels of plaque detected (relatively high risk of a heart attack within 3-5 years) >401-999 = extensive levels of plaque detected (high risk of heart attack, high levels of vascular disease are present, high likelihood of at least one significant coronary narrowing) *The calcium heart score quantifies the burden of coronary calcification/plaque in the coronary arteries. The calcium heart score is not able to evaluate the presence or burden of non-calcified (i.e. soft) plaque. There is no identifiable calcification in the aortic valve, mitral annulus or mitral valve, pericardium, or myocardium. Coronary CT Angiography The coronary arterial system is right dominant. Quantitative Stenosis Grading: Left Main (LM): The left main originates normally from the left sinus of Valsalva. The LM trifurcates into the left anterior descending artery and left circumflex artery. The LM is patent with no evidence of atherosclerosis. Left Anterior Descending (LAD) and Diagonal Branches: The LAD gives off 3 diagonal branches. The LAD and its branches are patent with no evidence of atherosclerosis. There is no evidence of LAD bridge. Ramus-intermedius (RI): The RI is patent. Left Circumflex (LCX) and Obtuse Marginals (OM): The LCX gives off 1 Obtuse Marginal (OM) branch. The LCX and its branches are patent with no evidence of atherosclerosis. Right Coronary Artery (RCA): The RCA originates normally from the right sinus of Valsalva. The RCA gives off a posterior descending artery (PDA) and posterolateral (PL) branches. The RCA and its branches are patent with no evidence of atherosclerosis. Non-Coronary Cardiac Findings: Analysis of the left ventricular (LV) structure and function was performed after 3-D reconstruction of the LV from axial images, with user-corrected automatic contouring for assessment of LV volumes and user-defined reconstruction from oblique planes for measurement of 3-D cardiac structure and function. LVEDV: 162 mL LVESV: 75 mL SV: 87 mL LVEF: 53.5 % -The left ventricle is normal in size with normal left ventricular systolic function. -Two right pulmonary veins and two left pulmonary veins drain normally into the left atrium. -No pericardial thickening or calcification. -Central and branch pulmonary arteries in the [id number] are unremarkable. -Thoracic aorta within the visualized thoracic aortic-branches in the [id number] is unremarkable. Extracardiac Structures No significant extra-cardiac findings. IMPRESSION -No coronary calcification with an Agatston score = 0 using the AJ-130 method. -No evidence of significant flow-limiting atherosclerosis of the coronary arteries. -No coronary anomalies are present. -CAD-RADS 0. Management recommendations per ACC/AHA guidelines*, as clinically appropriate. -No significant non-coronary cardiac findings in the visualized segments of the chest. *Recommendations: CAD RADS 0: Reassurance. Consider non-atherosclerotic causes of chest pain. CAD RADS 1: Consider non-atherosclerotic causes of chest pain. Consider preventive therapy and risk factor modification. CAD RADS 2: Consider non-atherosclerotic causes of chest pain. Consider preventive therapy and risk factor modification, particularly for patients with nonobstructive plaque in multiple segments. CAD RADS 3: Consider further functional testing. Consider symptom-guided anti-ischemic and preventive pharmacotherapy as well as risk factor modification per published guideline statements. CAD RADS 4A: Consider further functional testing or invasive coronary angiography with revascularization per published guideline statements. Consider symptom-guided anti-ischemic and preventive pharmacotherapy as well as risk factor modification per published guideline statements. CAD RADS 4B: Invasive coronary angiography recommended with revascularization per published guideline statements. Consider symptom-guided anti-ischemic and preventive pharmacotherapy as well as risk factor modification per published guideline statements. CAD RADS 5: Consider invasive angiography and/or viability assessment with revascularization per published guideline statements. Consider symptom-guided anti-ischemic and preventive pharmacotherapy as well as risk factor modification per published guideline statements. CRITICAL RESULT None COMMUNICATION Per this written report The coronary and cardiac findings of this CCTA were reviewed, reported, and signed by Anival Lantigua MD ([employer]) Conclusion Electronically signed by : Marixa Lantigua MD 06/19/2023 02:24:37
[2023-06-17] MEDS: METOPROLOL TARTRATE 50MG TABLET 100 MG PO (09:05)
[2023-06-17 09:14] LABS: Chloride 105 mmol/L (98-107); Sodium 139 mmol/L (136-145)
[2023-06-17 09:17] LABS: Alanine Aminotransferase 20 U/L (12-78); Albumin Level 3.7 g/dl (3.5-5.0); Albumin/Globulin Ratio 0.9 (1.1-1.8); Alkaline Phosphatase 142 U/L (38-126); Aspartate Amino Transferase 28 U/L (14-36); Bilirubin,Total 1.1 mg/dl (0.2-1.3); Blood Urea Nitrogen 7 mg/dl (7-17); Carbon Dioxide 25 mmol/L (22.0-30.0); Creatinine Clearance Estimated 163 mL/min (50-200); Estimated Glomerular Filt Rate 148 ml/min (>60); GFR (African American) 179 ML/MIN (>60); Total Protein,Serum 7.7 g/dl (6.3-8.2)
[2023-06-17 09:18] LABS: Calcium 8.6 mg/dl (8.4-10.2); Glucose 96 mg/dl (74-100)
[2023-06-17 09:43] LABS: HCG Qualitative, Serum Negative (Negative)
[2023-06-17] MEDS: METOPROLOL TARTRATE 5MG/5ML VIAL 5 MG IV ×5 (10:05→11:15)
--- NOTE | 2023-06-17 10:46 | INFXCTL.NOTE ---
1035- Pt complaining of midsternal chest pressure, rating at a 5/10 of numeric scale. JENNIFER Chou in cardiology notified. Effie stated to give 3rd dose of IV Metoprolol and to notify her if chest pain continues. Orders carried out. 102/51 78 HR 18 RR 96% on RA
--- NOTE | 2023-06-17 11:37 | CA_ITS ---
APPROVED REPORT EXAM: Comprehensive 2D, Doppler, and color-flow Echocardiogram Curtain Cutter: Kalina Herrera CRT Ht: 5 ft 8 in Wt: 142lbs BSA: 1.77 BP: 114/68 mmHg Indications: Abnormal ECG, Chest Pain, Palpitations, SVT, PVC'S, SMOKER 2D Dimensions Aortic Root 1.99 cm LVEF (Rai's) 58.20 % Left Atrium 3.19 cm LV Volume 91.80 mL LA Volume 51.80 mL LA Volume Index 29.30 mL/m2 (M/F) 16-34 EF AP4 58.00 % EF AP2 54.8 % EF BP 58.2 % GL Strain -23.3 % M-Mode Dimensions RVDd 2.59 cm (0.9-2.6) LVDd 3.56 cm (3.5-5.7) Ao Diam 3.64 cm (2.0-3.7) LVDs 2.64 cm (3.5-5.7) IVSd 1.18 cm (0.6-1.1) PWd 1.05 cm (0.6-1.1) EF (Teich) 51.70% FS 25.80% EDV (Teich) 53.00 mL TAPSE 1.19 (<1.7) ESV (Teich) 25.60 mL LV Diastology E Decel Time 142 (160-240 msec) E/A Ratio 2.59 MED E' 16.0 (>= 7 cm/sec) MED A' 9.40 cm/s E'/MED E' Ratio 6.59 (<= 14) LAT E' 16.1 (>= 10 cm/sec) LAT A' 9.30 cm/s E/LAT E' Ratio 6.55 (<= 14) Aortic Valve AoV Peak Tunde. 117.0 (50-130 cm/s) AO Peak GR. 5.50 mmHg Mitral Valve MV E Max Tunde. 105.0 (40-130 cm/s) MV A Velocity 41.0 (40-130 cm/s) E/A Ratio 2.59 MV Decel. Time 142 (160-240 ms) Tricuspid Valve TR P. Velocity 151.00 cm/s RAP Estimate 10.00 mmHg RVSP 19.20 mmHg Left Ventricle The left ventricle is normal size. The left ventricular systolic function is normal. The left ventricular ejection fraction is within the normal range. There is normal left ventricular wall thickness. There is normal LV segmental wall motion. The left ventricular diastolic function is normal. LVEF is 50-55%. Right Ventricle The right ventricle is normal size. The right ventricular systolic function is normal. Atria The left atrium size is normal. The right atrium size is normal. There is no Doppler evidence of interatrial shunt. Aortic Valve The aortic valve opens well. There is no aortic valvular stenosis. No aortic regurgitation is present. Mitral Valve The mitral valve is normal in structure. No evidence of mitral valve stenosis. Mild mitral regurgitation. Tricuspid Valve The tricuspid valve leaflets are thin and pliable. Trace tricuspid regurgitation. There is insufficient TR jet to estimate RVSP. Pulmonic Valve The pulmonary valve is normal in structure. Trace pulmonic regurgitation. Great Vessels The aortic root is normal in size. The ascending aorta is normal in size. IVC is normal in size and collapses >50% with inspiration. Pericardium There is no pericardial effusion. Other Information Study Quality: Adequate Conclusion Normal biventricular systolic function. Mild MR. Electronically signed by : Marixa Lantigua MD 06/21/2023 00:14:12
[2023-06-17] MEDS: SODIUM CHLORIDE 0.9% 10ML SYR (RAD ONLY) 10 ML IV (12:04)
[2023-06-17] MEDS: IOPAMIDOL-370 (76%);100ML BOTTLE 85 ML IV (12:04)
[2023-06-17] MEDS: 0.9 % SODIUM CHLORIDE 50 ML VIAL IV (12:04)
== END 2023-06-17 11:30 | disposition home or self-care (01) ==
LOC: RAD 08:26
PROVIDERS: PCP Internal Medicine; Visit Provider Internal Medicine
DX: R06.00 Dyspnea, unspecified (principal); R94.31 Abnormal electrocardiogram [ECG] [EKG]; R07.9 Chest pain, unspecified; R00.0 Tachycardia, unspecified; R00.2 Palpitations; R01.1 Cardiac murmur, unspecified; M79.604 Pain in right leg; M79.605 Pain in left leg; R20.0 Anesthesia of skin
CPT/HCPCS: 75571; 75574; 80053; 84703; 93306; Q9967

== ENCOUNTER 2023-07-20 12:37 | Outpatient (CLI) | payer MEDICAID, SELFPAY ==
[2023-07-20 13:15] LABS: Basophils # 0.1 K/mm3 (0-0.2); Basophils % 1.1 % (0.1-2.0); Eosinophils # 0.8 K/mm3 (0.0-0.4); Eosinophils % 7.8 % (0.1-12.0); Hematocrit 36.2 % (37.0-47.0); Hemoglobin 12.5 g/dL (12.2-16.2); Lymphocytes # 2.2 K/mm3 (0.7-4.5); Lymphocytes % 23.2 % (10-50); Mean Corpuscular HGB Conc 34.5 g/dL (31.8-35.4); Mean Corpuscular Hemoglobin 29.9 pg (27.0-31.2); Mean Corpuscular Volume 86.5 fl (81-99); Mean Platelet Volume 7.2 fl (7.4-10.4); Monocytes # 0.4 K/mm3 (0.1-1.0); Monocytes % 3.8 % (1.7-9.3); Neutrophils # 6.2 K/mm3 (1.8-7.8); Neutrophils % 64.1 % (37.0-80.0); Platelet Count 382 K/mm3 (142-424); Red Blood Count 4.18 M/mm3 (4.20-5.40); Red Cell Distribution Width 18.3 % (11.5-17.5); White Blood Count 9.7 K/mm3 (4.8-10.8)
[2023-07-20 13:20] LABS: Chloride 103 mmol/L (98-107); Potassium 3.2 mmoL/L (3.5-5.1)
[2023-07-20 13:21] LABS: Sodium 139 mmol/L (136-145)
[2023-07-20 13:23] LABS: Alanine Aminotransferase 33 U/L (12-78); Albumin Level 4.5 g/dl (3.5-5.0); Alkaline Phosphatase 157 U/L (38-126); Anion Gap 13.2 mEq/L (5-15); Aspartate Amino Transferase 32 U/L (14-36); Bilirubin,Total 0.9 mg/dl (0.2-1.3); Blood Urea Nitrogen 7 mg/dl (7-17); Carbon Dioxide 26 mmol/L (22.0-30.0); Estimated Glomerular Filt Rate 147 ml/min (>60); GFR (African American) 178 ML/MIN (>60); Globulin 4.5 g/dL (1.3-3.2)
[2023-07-20 13:24] LABS: Glucose 93 mg/dl (74-100)
[2023-07-20 13:42] LABS: Troponin I < 0.01 ng/ml (0.00-0.034)
[2023-07-20 13:54] LABS: Thyroid Stimulating Hormone < 0.02 uIU/mL (0.465-4.68)
[2023-07-20 14:02] LABS: Free T4 (Free Thyroxine) 1.04 ng/dl (0.78-2.19)
[2023-07-21 09:22] LABS: Thyroid Peroxidase Antibodies 528 IU/mL (0-34); Triiodothyronine (T3) Free 3.2 pg/mL (2.0-4.4)
[2023-07-21 16:13] LABS: Thyroglobulin Level <1.0 IU/mL (0.0-0.9)
== END 2023-07-20 23:59 ==
LOC: LAB 12:38
PROVIDERS: PCP Nurse Practitioner Family; Visit Provider Nurse Practitioner Family
DX: R06.02 Shortness of breath (principal); R00.0 Tachycardia, unspecified; E05.90 Thyrotoxicosis, unspecified without thyrotoxic crisis or storm
CPT/HCPCS: 36415; 80053; 84436; 84439; 84443; 84481; 84484; 85025; 86376; 86800

== ENCOUNTER 2024-03-28 16:51 | Emergency (ER) | payer MEDICAID, SELFPAY ==
[2024-03-28 16:52] VITALS: BP 155/72; PULSE 127; RESP 20; TEMP 36.8; O2SAT 99; BMI 23.6
--- NOTE | 2024-03-28 17:01 | ED_ITS ---
Discharge Plan Disposition Patient Disposition: Home, Self-Care Condition: Good Prescriptions Prescriptions: New ketorolac 10 mg tablet 10 mg PO Q8H PRN (Reason: pain) 5 Days Qty: 20 0RF No Action metoprolol succinate 50 mg tablet extended release 24 hr 50 mg PO DAILY azithromycin [Zithromax Z-John] 250 mg tablet See Rx Instructions PO .COMPLEX Qty: 6 0RF Rx Instructions: For 250 mg dose pack: take 500 mg today (day 1), then 250 mg for 4 days (days 2-5) PO potassium chloride 10 mEq tablet,ER particles/crystals 10 meq PO BID 30 Days Qty: 60 0RF albuterol sulfate [Ventolin HFA] 90 mcg/actuation HFA aerosol inhaler 2 puff inhalation Q4H PRN (Reason: Asthma) omeprazole 40 mg capsule,delayed release(DR/EC) 40 mg PO DAILY Qty: 90 3RF methimazole 10 mg tablet 10 mg PO DAILY Qty: 30 2RF Referrals Follow up/Referrals: Altaf Estevez DO [Staff Physician] - See instructions Provider,Referral, [Primary Care Provider] - See instructions Activity Restrictions/Add. Instructions Additional Instructions/Restrictions: As we discussed, it appears that you may have sustained an injury to the LCL and lateral meniscus based on my findings on ultrasound. I have prescribed a course of anti-inflammatory medications and you were given a one-time dose of steroids which should help with the inflammation. You have been provided any brace that you should use as needed for comfort. Please follow-up with orthopedic surgeon, have placed a referral. Please return with any new or worsening symptoms. Clinical Impressions Clinical Impression: Pain in lateral portion of right knee Instructions Patient Instructions: DI for Knee Pain Print Language Print Language: Greenlandic Discharge ED Provider: Christian Da Silva General Adult HPI General Chief complaint: Extremity Injury, Lower Stated complaint: right knee pain Time Seen by Provider: 03/28/24 17:01 History of Present Illness HPI narrative: Patient presents for evaluation of acute on chronic right knee pain. Symptoms were acute in onset starting approximately 48 hours ago, constant, stable in course, pain is located on the lateral aspect of right knee. No previous therapies. She reports she has had meniscal injuries and ACL injuries in the past. She sustained reported injury while ambulating. She has been able to bear weight since. No numbness or tingling. No pain elsewhere. No blood thinner usage. No history of coagulopathy. Please note that above description of symptoms, in this electronic medical record under categorization of recalled from ER triage doctor by RN are reflective of an initial nursing assessment, however, is not reflective of my full history and physical exam that was personally taken and clarified. Consequentially, this preceding description of symptoms, which may include the patient's categorized chief complaint in the EMR, do not reflect my personal clinical impression, and the ultimate description of history of present illness and patient stated complaints should be deferred to this section of the note. Unless stated otherwise or congruent with this section of the note, additional signs, symptoms, or incongruence should be interpreted as inaccurate with my clinical impression. Related Data Home Medications ?Medication ?Instructions ?Recorded ?Confirmed albuterol sulfate 90 mcg/actuation 2 puff inhalation Q4H PRN Asthma 06/01/23 07/22/23 aerosol inhaler (Ventolin HFA) metoprolol succinate 50 mg 50 mg PO DAILY 07/11/23 07/22/23 tablet,extended release 24 hr Previous Rx's ?Medication ?Instructions ?Recorded omeprazole 40 mg capsule,delayed 40 mg PO DAILY #90 caps 06/01/23 release methimazole 10 mg tablet 10 mg PO DAILY #30 tabs 06/06/23 azithromycin 250 mg tablet See Rx Instructions PO .COMPLEX #6 07/20/23 (Zithromax Z-John) tabs potassium chloride 10 mEq 10 meq PO BID 30 days #60 tabs 07/20/23 tablet,extended release(part/cryst) ketorolac 10 mg tablet 10 mg PO Q8H PRN pain 5 days #20 03/28/24 tabs Allergies Allergy/AdvReac Type Severity Reaction Status Date / Time aspirin [ASPIRIN] Allergy Unknown Verified 07/22/23 15:04 [facility] Disclaimer: The information contained in this section may have been updated after the patient was seen, as this information can be updated by other users. Medical History Abnormal electrocardiogram [ECG] [EKG] Bilateral leg pain Chest pain Dyspnea Graves disease Hyperthyroidism Hypoglycemia Lupus Murmur Numbness of left hand Palpitations Tachycardia Surgical History H/O toe surgery History of History of dental surgery Family History Father Coronary artery disease Grandfather Thyroid disorder Diabetes Coronary artery disease Social History Smoking Status: Current every day smoker tobacco type: cigarettes packs per day: 1 alcohol intake: never substance use type: denies use current occupational status: employed Travel in the last 8 weeks: None household members: family housing: house Other Medical History Have you received the Flu Vaccine for this season: No Have you received the Pneumonia Vaccine: No ROS Obtained: Yes other As per HPI Physical Exam General General appearance: alert and in no apparent distress Head Head exam: atraumatic and normocephalic Eye Eye exam: Present normal appearance Neck Neck exam: Present normal inspection Chest Chest inspection: Present normal inspection and symmetric chest wall rise Respiratory Respiratory exam: Present normal lung sounds bilaterally; Absent respiratory distress Cardiovascular Cardiovascular exam: Present regular rate and normal rhythm Abdominal Exam Abdominal exam: Present soft Neurological Exam Neurological exam: Present alert and oriented X3 Psychiatric Psychiatric exam: Present normal affect and normal mood Skin Skin exam: Present warm and dry Other Other exam information: Tenderness to palpation of lateral aspect of right knee, no obvious varus or valgus laxity. Negative anterior and posterior drawer sign. Medical Decision Making Medical Records Medical records reviewed: Yes I reviewed the patient's medical records. Screening: Per USPSTF and CDC recommendations, given the prevalence of disease in our region, it is our hospital?s policy to screen for HIV and viral Hepatitis for all patients aged 18 and over and those with ongoing risk factors. [place] Inquiry Pt receiving controlled substance: No Vital Signs: 03/28/24 16:52 03/28/24 17:34 Temperature 98.2 F 98.2 F Temperature Source Oral Pulse Rate 80 Pulse Rate [Right Radial] 127 H Respiratory Rate 20 20 Blood Pressure 135/70 Blood Pressure [Right Arm] 155/72 H Blood Pressure Mean [Right Arm] 99 02 Sat by Pulse Oximetry 99 Oxygen Delivery Method Room Air Room Air Orders (Tests/Meds): ED MEDICATIONS Discontinued Medications Generic Name Dose Route Start Last Admin Trade Name Freq PRN Reason Stop Dose Admin Dexamethasone 10 mg 03/28/24 17:16 03/28/24 17:27 Dexamethasone 4mg Tablet PO 03/28/24 17:17 10 mg ONCE ONE Administration Ketorolac Tromethamine 15 mg 03/28/24 17:16 03/28/24 17:26 Ketorolac 30mg/Ml Vial IM 03/28/24 17:17 15 mg ONCE ONE Administration ORDERS Category Date Time Status POCUS Point of Care (ER Only) Stat Exams 03/28/24 17:02 Completed Medical Decision Narrative: Patient with history and exam per above presenting for evaluation of injury Diagnoses considered include fracture, MCL injury, LCL injury, meniscal injury, among others. ED workup and treatment included: ED MEDICATIONS Discontinued Medications Generic Name Dose Route Start Last Admin Trade Name Freq PRN Reason Stop Dose Admin Dexamethasone 10 mg 03/28/24 17:16 03/28/24 17:27 Dexamethasone 4mg Tablet PO 03/28/24 17:17 10 mg ONCE ONE Administration Ketorolac Tromethamine 15 mg 03/28/24 17:16 03/28/24 17:26 Ketorolac 30mg/Ml Vial IM 03/28/24 17:17 15 mg ONCE ONE Administration ORDERS Category Date Time Status POCUS Point of Care (ER Only) Stat Exams 03/28/24 17:02 Completed Patient declines x-ray imaging. [id number] ultrasound revealed concerns for lateral meniscal injury. My clinical impression at this time is most consistent with lateral meniscal injury, possible partial tear of LCL. I discussed my clinical impression with patient and answered all questions. At this time, the evidence for any other entities in the differential is insufficient to warrant any further testing or ED observation. This was explained to the patient. The patient was advised that persistent or worsening symptoms require further evaluation. Critical Care Critical Care Time Critical Care Time: No
[2024-03-28] MEDS: KETOROLAC 30MG/ML VIAL 15 MG IM (17:26)
[2024-03-28] MEDS: DEXAMETHASONE 4MG TABLET 10 MG PO (17:27)
[2024-03-28 17:34] VITALS: BP 135/70; PULSE 80; RESP 20; TEMP 36.8; O2SAT 98
== END 2024-03-28 17:35 | disposition home or self-care (01) ==
PROVIDERS: Emergency Provider Emergency Medicine
DX: M25.561 Pain in right knee (principal)
CPT/HCPCS: 96372; 99284; J1885; J8540